=== PATIENT | female | born 1985 | race Caucasian/White ===

== ENCOUNTER 2018-10-11 16:27 | Emergency (ER) | payer OTHER, SELFPAY ==
[2018-10-11 16:40] VITALS: BP 122/78; PULSE 74; RESP 18; TEMP 36.8; O2SAT 100; BMI 24.9
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
== END 2018-10-11 19:14 | disposition home or self-care (01) ==
PROVIDERS: Emergency Provider Nurse Practitioner Family
DX: T54.3X1A Toxic effect of corrosive alkalis and alkali-like substances, accidental (unintentional), initial encounter (principal)
CPT/HCPCS: 99283

== ENCOUNTER → 2019-09-17 13:01 | Outpatient (CLI) | payer OTHER, SELFPAY ==
--- NOTE | 2019-09-17 | DI.US.S_ITS ---
ULTRASOUND OF RIGHT BREAST: 09/17/2019 CLINICAL: Palpable right breast lump. Comparison is made to exams dated: 09/17/2019 mammogram and 09/17/2019 [facility]. Color flow and real-time ultrasound of the right breast were performed. Avelar scale images of the real-time examination were reviewed. There is a 0.9 cm x 0.6 cm x 0.2 cm mass within the skin of the right breast at 6 o'clock. This mass is hypoechoic and parallel to skin in orientation. This correlates as palpated and with area of clinical concern. Color flow imaging demonstrates that there is no vascularity present. No significant abnormalities were seen sonographically in the right breast. IMPRESSION: BENIGN There is no sonographic evidence of malignancy. The 0.9 cm x 0.6 cm x 0.2 cm mass within the skin of the right breast resembles a sebaceous cyst and is benign. A screening mammogram starting at age 40 is recommended. This exam was interpreted at Station ID: [id number]. Electronically Signed By: Nico Huynh M.D. at/:09/20/2019 16:11:17 Ultrasound BI-RADS: 2 Benign
--- NOTE | 2019-09-17 | DI.MG.S_ITS ---
BILATERAL DIGITAL DIAGNOSTIC MAMMOGRAM 3D/2D: 09/17/2019 CLINICAL: Baseline exam. Right breast mass. No prior exams were available for comparison. The tissue of both breasts is heterogeneously dense. This may lower the sensitivity of mammography. No significant masses, calcifications, or other findings are seen in either breast. IMPRESSION: INCOMPLETE: NEEDS ADDITIONAL IMAGING EVALUATION There is no abnormality seen in the right breast to correspond with the area of clinical concern, palpable abnormality, and pain indicated by triangular marker in the middle depth in the lower inner quadrant, however, ultrasound is recommended which is scheduled to immediately follow this exam. This exam was interpreted at Station ID: [id number]. NOTE: For mammograms, a report in lay terms will be sent to the patient. Approximately 15% of breast malignancies will not be visualized mammographically. In the management of a palpable breast mass, a negative mammogram must not discourage biopsy of a clinically suspicious lesion. Electronically Signed By: Nico Huynh M.D. aty/:09/17/2019 13:54:48 ACR BI-RADS Category 0: Incomplete [id number]
== END ==
PROVIDERS: Referring Provider Internal Medicine; Visit Provider Internal Medicine
DX: R92.8 Other abnormal and inconclusive findings on diagnostic imaging of breast (principal); N63.14 Unspecified lump in the right breast, lower inner quadrant
CPT/HCPCS: 76642; 77066; G0279

== ENCOUNTER → 2019-10-22 11:48 | Outpatient (CLI) | payer OTHER, SELFPAY ==
[2019-10-22 15:20] LABS: Influenza A - CEPHEID Flu A NEGATIVE (NEGATIVE); Influenza B - CEPHEID Flu B NEGATIVE (NEGATIVE)
[2019-10-24 12:22] LABS: COVID19 Sendout Not Detected (Not Detected)
== END ==
PROVIDERS: Visit Provider Registered Nurse
DX: R68.89 Other general symptoms and signs (principal)
CPT/HCPCS: 87502; 87635

== ENCOUNTER → 2019-10-28 10:23 | Outpatient (CLI) | payer OTHER, SELFPAY ==
--- NOTE | 2019-10-28 | DI.RAD.S_ITS ---
PROCEDURE: XR CHEST 2V INDICATIONS: fevers, uri TECHNIQUE: 2 views of the chest were acquired. COMPARISON: None. FINDINGS: Surgical changes and devices: None. Lungs and pleura: Lungs are clear. No pleural effusions or pneumothorax. Mediastinum: Mediastinal contours are normal. Heart size is normal. Bones and chest wall: No suspicious bony abnormalities. Soft tissues appear unremarkable. IMPRESSION: No acute cardiopulmonary disease. Dictated by: Izabel Echeverria M.D. on 10/28/2019 at 13:16 Approved by: Izabel Echeverria M.D. on 10/28/2019 at 13:16
== END ==
PROVIDERS: PCP Student in an Organized Health Care Education/Training Program; Referring Provider Student in an Organized Health Care Education/Training Program; Visit Provider Student in an Organized Health Care Education/Training Program
DX: J06.9 Acute upper respiratory infection, unspecified (principal); R50.9 Fever, unspecified
CPT/HCPCS: 71046